=== PATIENT | male | born 1950 | race Caucasian/White ===

== ENCOUNTER → 2023-01-29 14:39 | Outpatient (REF) | payer MEDICARE, BC, SELFPAY ==
--- NOTE | 2023-01-29 14:48 | CA_ITS ---
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 Low normal LV systolic function with LVEF of 50-55% 2. Moderate biatrial enlargement 3. Mildly dilated right ventricle with normal systolic function 4. Mild mitral regurgitation 5. Upper limits of normal RV systolic pressure with mildly elevated right atrial pressures 6. No gross pericardial effusion Findings Left Ventricle Normal left ventricular cavity size. There is mildly increased left ventricular wall thickness. The left ventricular systolic function is low normal. The visually estimated ejection fraction is between 50-55%. Spectral Doppler is indicative of a restrictive filling pattern. Right Ventricle Mildly increased right ventricular cavity size. There is normal right ventricular systolic function. Atria The left atrium is moderately dilated. There is no evidence of interatrial shunt. The right atrium is moderately dilated. Aortic Valve There is mild calcification of the aortic valve. There is mild thickening of the aortic valve. There is no aortic valve stenosis. There is no aortic valve regurgitation. Mitral Valve There is mild anterior and posterior mitral leaflet thickening. There is mild mitral valve regurgitation. There is no mitral valve stenosis. Pulmonic Valve The pulmonic valve is likely normal. Tricuspid Valve There is mild tricuspid valve regurgitation. Mildly elevated right atrial pressure. There is no evidence of pulmonary hypertension. Great Vessels The pulmonary artery was not well visualized. There is mild dilatation of the ascending aorta measuring 3.90 cm. Venous The inferior vena cava is moderately dilated and collapses greater than 50% with inspiration. Pericardium/Pleural There is no evidence of pericardial effusion. Prior Study Comparison No prior study available for comparison. Measurements 2D Linear Measurements IVSd: 1.21 0.6-0.9/0.6-1.0 cm LVIDd: 4.83 3.9-5.3/4.2-5.9 cm LVIDd Index: 2.05 2.4-3.2/2.2-3.1 cm/m2 LVIDs: 3.48 2.0-3.6 cm LVPWd: 1.22 0.7-1.1 cm Ao Root: 3.50 2.1-3.5 cm LA Diam: 4.60 2.7-3.8/3.0-4.0 cm LAIDs Index: 1.95 1.5-2.3 cm/m2 LV Mass: 280.78 67-162/88-224 g LV Mass Index: 118.97 43-95/49-115 g/m2 LVOT Diam: 2.00 3.0+(-)1.3 cm Mitral Valve MV Pk E: 1.13 MV Decel Time: 267.00 E'Lateral: 11.30 E'Medial: 6.53 E/E' Med: 17.30 E/E' Lat: 10.00 PHT: 78.00 MVA PHT: 2.82 Decel Prentiss: 4.22 Aortic Valve AoV Pk Felipe: 1.70 AoV Mn Felipe: 1.16 AoV VTI: 0.40 AoV Pk Grad: 12.00 Aov Mn Grad: 6.00 KEM Cont.VTI: 1.94 LVOT LVOT Pk Felipe: 1.16 LVOT Mn Felipe: 0.73 LVOT VTI: 0.25 LVOT Pk Grad: 5.00 LVOT Mn Grad: 3.00 LVOT Diam: 2.00 LVOT Area: 3.14 Diastolic Function MV Pk E: 1.13 E'Medial: 6.53 E/E' Med: 17.30 E' Laterial: 11.30 E/E' Lat: 10.00 Right Ventricle TAPSE (mm): 25.00 Tricuspid Valve TR Pk Felipe: 2.67 TR Pk Grad: 29.00 RA Press: 8.00 RVSP: 37.00 Great Vessels Aorta Ao Root-2D: 3.50 2.0-3.7 cm Ao Asc: 3.90 2.1-3.4 cm Pulmonary Valve PV Pk Felipe: 1.44 Peak PV Grad: 8.00 Updated in Other Vendor System with Status of Final Todd Rainey MD electronically signed on 01/30/2023 11:16:47 AM with status of Final
== END ==
LOC: HO.CARD 14:39
PROVIDERS: PCP Family Medicine; Visit Provider Family Medicine
DX: I48.0 Paroxysmal atrial fibrillation (principal)
CPT/HCPCS: 93306